=== PATIENT | female | born 1955 | race Caucasian/White ===

== ENCOUNTER → 2021-09-07 11:29 | Outpatient (CLI) | payer OTHER, SELFPAY ==
--- NOTE | 2021-09-07 11:34 | DI.MRI.S_ITS ---
PROCEDURE: MR LUMBAR SPINE WO CON INDICATIONS: Low back pain, unspecified TECHNIQUE: Noncontrast sagittal T1 spin echo and T2 fast echo, sagittal STIR, axial T1 and T2 fast spin echo through the lumbar spine. In cases with scoliosis, additional coronal T2 fast spin echo may be performed. COMPARISON: [facility], CR, XR LUMBAR SPINE WITH OBLIQUES, 04/21/2020, 9:31. [facility], CR, XR LUMBAR SPINE 2 OR 3 VIEWS, 08/18/2021, 13:17. FINDINGS: Image quality: This examination is limited by involuntary motion artifact. Alignment and Curvature: Moderate dextroconvex scoliosis is seen. There is minimal retrolisthesis seen at L1-L2 and L2-L3. Bone Marrow: Marrow is of normal overall signal. No acute vertebral body compression fractures. Spinal Cord: Conus medullaris terminates at the L1 level. Visualized cord demonstrates normal signal and size. Paraspinous Soft Tissues: No paravertebral masses. T12-L1: Moderate loss of disc height is seen. Loss of disc signal is seen. Bridging endplate osteophytes are seen. Mild disc bulge is seen, with a mild central disc protrusion. Mild facet joint hypertrophy is seen. No significant neural foraminal or central canal narrowing can be seen. L1-L2: At least moderate loss of disc height and disc signal can be seen. Reactive marrow endplate changes are seen, which demonstrate mixed T1 weighted and T2-weighted signal, and are attributed to a combination of edema and fatty metaplasia (Modic type I and Modic type II changes). Bridging endplate osteophytes are seen. Mild generalized disc bulge is seen. Moderate facet joint hypertrophy is seen. Fluid is seen within the facet joints themselves. Moderate bilateral neural foraminal narrowing can be seen, left worse than right. Mild central canal narrowing is seen. L2-L3: At least moderate loss of disc height and disc signal can be seen. Bridging endplate osteophytes are seen, which are worst on the left side. At least moderate disc bulge is seen, which is eccentric to the left. Mild to moderate facet hypertrophy is seen at this level. There is moderate to severe left-sided and at least moderate right-sided neural foraminal narrowing seen. Mild central canal narrowing is seen. L3-L4: Moderate to severe loss of disc height and disc signal can be seen. Moderate generalized disc bulge is seen. Reactive marrow endplate changes are seen, which demonstrate mixed T1 weighted and T2-weighted signal, and are attributed to a combination of edema and fatty metaplasia (Modic type I and Modic type II changes). Bridging endplate osteophytes are seen on the left. Moderate facet joint hypertrophy is seen. Fluid is seen within the facet joints themselves. There is moderate to severe bilateral neural foraminal narrowing seen, left worse than right. Mild central canal narrowing is seen. L4-L5: Moderate to severe loss of disc height and disc signal can be seen. Remote Schmorl's nodes are seen at the inferior endplate of L4. Moderate disc bulge is seen, which is eccentric to the left. Partially bridging endplate osteophytes are seen on the left. There is a superimposed central disc protrusion. Moderate to severe bilateral neural foraminal narrowing can be seen, left worse than right. There is a degree of compression seen upon the exiting nerve roots. Moderate central canal narrowing is seen. L5-S1: At least moderate loss of disc height and disc signal can be seen. Moderate generalized disc bulge is seen, which is eccentric to the right. There is a superimposed central disc protrusion. Mild to moderate facet hypertrophy is seen. There is moderate to severe right-sided neural foraminal narrowing seen, with associated compression upon the exiting right L5 nerve root. Moderate left-sided neural foraminal narrowing is seen. Mild central canal narrowing is seen. 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 IMPRESSION: Multiple levels of relatively prominent lumbar spine degenerative change are seen. Several sites of significant neural foraminal narrowing can be seen, with associated exiting nerve root compression. Moderate dextroconvex lumbar scoliosis. Several levels of bridging endplate osteophytes can be seen. Dictated by: Kaushal Gale M.D. on 09/07/2021 at 13:10 Approved by: Kaushal Gale M.D. on 09/07/2021 at 13:16
== END ==
PROVIDERS: PCP Registered Nurse; Referring Provider Orthopaedic Surgery Orthopaedic Surgery of the Spine; Visit Provider Orthopaedic Surgery Orthopaedic Surgery of the Spine
DX: M47.816 Spondylosis without myelopathy or radiculopathy, lumbar region (principal); M47.817 Spondylosis without myelopathy or radiculopathy, lumbosacral region; M48.061 Spinal stenosis, lumbar region without neurogenic claudication; M48.07 Spinal stenosis, lumbosacral region; M41.86 Other forms of scoliosis, lumbar region; M54.50 Low back pain, unspecified
CPT/HCPCS: 72148